=== PATIENT | female | born 1965 | race Caucasian/White ===

== ENCOUNTER 2016-04-06 16:44 | Emergency (ER) | payer OTHER, MEDICARE, MEDICAID ==
[2016-04-06] MEDS ORDERED: SODIUM CHLORIDE 0.9% 500 ML ONE (17:23)
[2016-04-06 17:43] LABS: ABSOLUTE NEUTROPHIL COUNT 6.4 K/mm3 (1.8-7.7); BASO % 0.4 % (0.2-1.0); EOS % 0.4 % (0.9-2.9); HEMATOCRIT 40.7 % (37.0-47.0); HEMOGLOBIN 13.8 gm/l (12.0-16.0); IMM NEUT% 0.4 % (0-1); LYMPH # 0.8 (1.0-4.8); LYMPH % 10.5 % (15-45); MEAN CELL VOLUME 92.7 fl (81.0-99.0); MEAN CORPUSCULAR HEMOGLOBIN 31.4 pg (27.0-31.0); MEAN CORPUSCULAR HGB CONC 33.9 g/dl (33.0-37.0); MEAN PLATELET VOLUME 9.9 fl (7.4-10.4); MONO # 0.7 (0.0-0.8); MONO % 8.3 % (4-12); PLATELET COUNT 194 K/mm3 (130-400); RED CELL DISTRIBUTION WIDTH 12.3 % (11.5-14.5)
[2016-04-06 17:49] LABS: ALBUMIN 3.8 gm/dL (3.5-5.7); CALCIUM 9.5 mg/dL (8.6-10.3)
[2016-04-06 19:03] LABS: URINE BILIRUBIN NEGATIVE (NEGATIVE); URINE BLOOD 2+ (NEGATIVE); URINE GLUCOSE (UA) NEGATIVE (NEGATIVE); URINE LEUKOCYTE ESTERASE 1+ (NEGATIVE); URINE NITRITE POSITIVE (NEGATIVE); URINE PROTEIN NEGATIVE (NEGATIVE); URINE UROBILINOGEN NORMAL (0-1 mg/dl)
[2016-04-06 19:07] LABS: URINE APPEARANCE CLOUDY; URINE COLOR YELLOW
[2016-04-06 19:12] LABS: URINE WBC 20-30 /hpf
[2016-04-06 19:13] LABS: URINE BACTERIA 3+
[2016-04-06] MEDS ORDERED: CIPROFLOXACIN 500 MG TABLET ONE (19:21)
== END 2016-04-06 21:46 | disposition home or self-care (01) ==
LOC: ED 16:44
DX: T83.511A Infection and inflammatory reaction due to indwelling urethral catheter, initial encounter (principal); N39.0 Urinary tract infection, site not specified; R41.82 Altered mental status, unspecified; R53.1 Weakness; Y84.6 Urinary catheterization as the cause of abnormal reaction of the patient, or of later complication, without mention of misadventure at the time of the procedure; Y92.129 Unspecified place in nursing home as the place of occurrence of the external cause
CPT/HCPCS: 85025; 87040; 80053; 83735; 84484; 81001; 99284 ×2; 93005; A9270; J7040